=== PATIENT | female | born 1990 | race African-American/Black ===

== ENCOUNTER 2019-09-21 11:21 | Emergency (ER) | payer SELFPAY | END 2019-09-21 11:52 | disposition home or self-care (01) | LOC: NAV ERS 11:21 | DX: Z76.0 Encounter for issue of repeat prescription (principal); I10 Essential (primary) hypertension; E11.9 Type 2 diabetes mellitus without complications; E66.9 Obesity, unspecified; Z79.84 Long term (current) use of oral hypoglycemic drugs; Z79.899 Other long term (current) drug therapy | CPT/HCPCS: 99281 ==